=== PATIENT | male | born 1955 | race Caucasian/White ===

== ENCOUNTER 2020-11-07 10:04 | Inpatient (IN) | payer MEDICARE, MEDICAID ==
[2020-11-07] MEDS ORDERED: Ketorolac Tromethamine 30 MG/ML VIAL ONE (10:29)
[2020-11-07] MEDS ORDERED: Midazolam HCl 2 mg/2 ml Vial ONE (10:29)
[2020-11-07] MEDS ORDERED: Propofol 1,000 MG/100 ML VIAL IV ONE (10:56)
[2020-11-07] MEDS ORDERED: Acetaminophen 650 MG Suppository ONE (10:58)
[2020-11-07] MEDS ORDERED: cefTRIAXone\\ROCEPHIN 1 GM VIAL ONE (11:01)
[2020-11-07] MEDS ORDERED: Vancomycin 1 GM/200 ML BAG ONE (11:01)
[2020-11-07] MEDS ORDERED: Sodium Chloride 0.9% 100 ML ONE (11:02)
[2020-11-07] MEDS ORDERED: Enoxaparin Sodium 80 MG/0.8 ML SYRINGE ONE (11:09)
[2020-11-07 11:14] LABS: Actual Bicarbonate (HCO3a) 18.3 mEq/L (22-28); Analyzer IN Cardio ER; Base Excess (BEa) -7.6 mEq/L (-2.0 to +3.0); CO2 Tension 38.7 mmHg (35.0-45.0); Calcium, Ionized (arterial) 1.14 mmol/L (1.12-1.30); Carboxyhemoglobin (COHb) 0.3 gm% (0.0-3.0); Hemoglobin (Hb) 14.4 g/dL (14.0-18.0); O2 Tension (PaO2), arterial 59.2 mmHg (> 80.0); Potassium - ABG Lab 4.07 mmol/L (3.70-5.30); pH, Arterial 7.29 (7.35-7.45)
[2020-11-07 11:15] LABS: ALV-art Gradient 605.425 mmHg (0-20); Puncture Site RRA
[2020-11-07 11:21] LABS: INR-International Normal Ratio 1.1; PTT 24.6 sec (22.9-36.1); Prothrombin Time 14.4 sec (12.0-14.7)
[2020-11-07 11:34] LABS: Band 11 % (5-11); Hemoglobin 14.5 g/dL (14.0-18.0); Lymphocytes 6 % (21-51); MDiff Complete? YES; Mean Corpuscular HGB CONC 32.9 g/dL (32.0-36.0); Mean Corpuscular Hemoglobin 32.4 pg (27.0-31.0); Mean Corpuscular Volume 98.5 fL (78.0-98.0); Mean Platelet Volume 7.4 fL (7.4-10.4); Monocytes 1 % (0-10); Neutrophil 82 % (42-75); Nucleated RBC 2 % (0); Platelet Count 231 thou/uL (130-400); RBC Distribution Width 12.7 % (11.5-14.5); Red Blood Cell (RBC) Count 4.48 mill/uL (4.70-6.10); White Blood Cell (WBC) Count 24.5 thou/uL (4.8-10.8)
[2020-11-07 11:35] LABS: Chloride 112 mmol/L (98-107); Potassium 4.1 mmol/L (3.5-5.1); Sodium 146 mmol/L (136-145)
[2020-11-07 11:36] LABS: Calcium 7.8 mg/dL (7.8-10.44)
[2020-11-07 11:37] LABS: Globulin 2.6 g/dL (2.4-3.5); Protein, Total 5.6 g/dL (5.8-8.1)
[2020-11-07 11:38] LABS: Anion Gap 19 mmol/L (10-20); Carbon Dioxide 19 mmol/L (23-31)
[2020-11-07 11:39] LABS: Glucose 181 mg/dL (80-115)
[2020-11-07 11:40] LABS: Alkaline Phosphatase 74 U/L (40-110); Calc. Creatinine Clearance 0 mL/min (70-130)
[2020-11-07 11:41] LABS: BUN (Urea Nitrogen) 34 mg/dL (8.4-25.7)
[2020-11-07 11:42] LABS: ALT (SGPT) 53 U/L (8-55); AST (SGOT) 55 U/L (5-34)
[2020-11-07 11:51] LABS: CKMB 1.8 ng/mL (0-6.6)
[2020-11-07] MEDS ORDERED: Lorazepam 2 MG/ML VIAL ONE (12:02)
[2020-11-07] MEDS ORDERED: Fentanyl 100 MCG/2 ML VIAL ONE (12:02)
[2020-11-07 12:10] LABS: Bacteria/HPF 2+ HPF (None Seen); Bilirubin Negative (Negative); Blood, Urine 3+ (Negative); Clarity Clear (Clear); Glucose, Urine (Dipstick) Normal (Negative); Ketone, Urine Negative (Negative); Leukocyte Negative Leu/uL (Negative); Nitrite Negative (Negative); Protein, Urine (Dipstick) 70 mg/dL (Neg-Trace); RBC/HPF 21-50 HPF (0-3); Specific Gravity, Urine 1.018 (1.002-1.036); Squamous Epithelial 0-3 HPF (0-3); Urobilinogen Normal mg/dL (Less than 2); pH, Urine 5.5 (5.0-9.0)
[2020-11-07] MEDS ORDERED: Cefepime 2 GM VIAL ONE (12:13)
[2020-11-07] MEDS ORDERED: Ondansetron PF 4 MG/2 ML Vial IVP PRN (12:22)
[2020-11-07] MEDS ORDERED: Fentanyl CADD 100 ML IV SCH (12:30)
[2020-11-07] MEDS ORDERED: Ventilator Sedation Protocol 1 EACH FS SCH (12:30)
[2020-11-07] MEDS ORDERED: Morphine 2 MG/ML VIAL SLOW IVP PRN (13:15)
[2020-11-07] MEDS ORDERED: DISCONTINUE PREVIOUS NARCOTIC PAIN MEDICATIONS AND BENZODIAZEPINES FS SCH (13:15)
[2020-11-07] MEDS ORDERED: Propofol BOLUS 1,000 MG/100 ML VIAL IV PRN (13:15)
[2020-11-07] MEDS ORDERED: Fentanyl BOLUS 250 ML IVPB PRN (13:15)
[2020-11-07] MEDS ORDERED: Vecuronium 10 MG VIAL ONE (14:22)
[2020-11-07 14:26] LABS: CKMB 5.2 ng/mL (0-6.6)
[2020-11-07] MEDS ORDERED: Heparin 5,000 UNITS/ML VIAL SC SCH (15:00)
[2020-11-07] MEDS ORDERED: Sodium Chloride 0.9% 1,000 ML IV SCH (15:15)
[2020-11-07] MEDS: Sodium Chloride 0.45% 1,000 ML IV SCH (15:49)
[2020-11-07] MEDS: Vecuronium 10 MG VIAL IVP PRN (15:57)
[2020-11-07] MEDS: methylPREDNISolone Sod Succ/PF 80 MG in Sodium Chloride 0.9% 250 ML 250 ML IVPB SCH (17:41)
[2020-11-07 19:47] LABS: CKMB 11.9 ng/mL (0-6.6)
[2020-11-07] MEDS: Enoxaparin Sodium 60 MG/0.6 ML SYRINGE SC SCH (20:45)
[2020-11-07] MEDS: Pantoprazole 40 MG VIAL IVP SCH (20:46)
[2020-11-07] MEDS ORDERED: Famotidine/PF 20 mg/2ml Vial SLOW IVP SCH (21:00)
[2020-11-07] MEDS: Vancomycin 1 GM in Premix Bag 1 BAG IVPB SCH (22:53)
[2020-11-07] MEDS: Cefepime 2 GM in Sodium Chloride 0.9% 100 ML IVPB SCH (23:57)
[2020-11-08] MEDS: Vecuronium 10 MG VIAL IVP PRN ×9 (01:17→23:12)
[2020-11-08 04:40] LABS: Anion Gap 14 mmol/L (10-20); BUN (Urea Nitrogen) 43 mg/dL (8.4-25.7); Calc. Creatinine Clearance 42 mL/min (70-130); Calcium 7.6 mg/dL (7.8-10.44); Carbon Dioxide 19 mmol/L (23-31); Chloride 114 mmol/L (98-107); Glucose 137 mg/dL (80-115); Sodium 142 mmol/L (136-145)
[2020-11-08 04:48] LABS: Mean Corpuscular HGB CONC 30.9 g/dL (32.0-36.0); Mean Corpuscular Hemoglobin 30.5 pg (27.0-31.0); Mean Corpuscular Volume 98.4 fL (78.0-98.0); Mean Platelet Volume 7.4 fL (7.4-10.4); Platelet Count 200 thou/uL (130-400); RBC Distribution Width 12.5 % (11.5-14.5); Red Blood Cell (RBC) Count 3.93 mill/uL (4.70-6.10)
[2020-11-08 05:09] LABS: Band 1 % (5-11); Lymphocytes 5 % (21-51); MDiff Complete? YES; Monocytes 2 % (0-10); Neutrophil 92 % (42-75)
[2020-11-08] MEDS: Sodium Chloride 0.45% 1,000 ML IV SCH ×2 (05:58→17:21)
[2020-11-08] MEDS: Propofol 1,000 MG/100 ML VIAL IV PRN ×2 (07:42→20:01)
[2020-11-08 08:32] LABS: Actual Bicarbonate (HCO3a) 20.1 mEq/L (22-28); Base Excess (BEa) -5.5 mEq/L (-2.0 to +3.0); CO2 Tension 39.4 mmHg (35.0-45.0); Calcium, Ionized (arterial) 1.14 mmol/L (1.12-1.30); Carboxyhemoglobin (COHb) 0.3 gm% (0.0-3.0); Hemoglobin (Hb) 12.6 g/dL (14.0-18.0); Potassium - ABG Lab 4.64 mmol/L (3.70-5.30); pH, Arterial 7.33 (7.35-7.45)
[2020-11-08 08:34] LABS: O2 Tension (PaO2), arterial 52.6 mmHg (> 80.0)
[2020-11-08 08:35] LABS: Puncture Site LRA
[2020-11-08] MEDS ORDERED: Sterile Water 10 ML ONE (08:52)
[2020-11-08] MEDS ORDERED: Dexamethasone 10 MG in Sodium Chloride 0.9% 50 ML IVPB SCH (09:00)
[2020-11-08] MEDS ORDERED: Dexamethasone 4 mg/ml Vial SLOW IVP SCH (09:00)
[2020-11-08] MEDS: Pantoprazole 40 MG VIAL IVP SCH ×2 (10:00→20:01)
[2020-11-08] MEDS: Enoxaparin Sodium 60 MG/0.6 ML SYRINGE SC SCH ×2 (10:00→20:01)
[2020-11-08] MEDS ORDERED: Fentanyl CADD 100 ML ONE (11:14)
[2020-11-08] MEDS: Vancomycin 1 GM in Premix Bag 1 BAG IVPB SCH ×2 (11:17→23:08)
[2020-11-08] MEDS: Cefepime 2 GM in Sodium Chloride 0.9% 100 ML IVPB SCH (11:17)
[2020-11-08] MEDS: Fentanyl CADD 100 ML IV SCH (11:17)
[2020-11-08] MEDS: Cefepime 1 GM in Sodium Chloride 0.9% 100 ML IVPB SCH ×2 (11:39→23:07)
[2020-11-08] MEDS: Lorazepam 2 MG/ML VIAL SLOW IVP PRN (11:47)
[2020-11-08] MEDS: methylPREDNISolone Sod Succ/PF 80 MG in Sodium Chloride 0.9% 250 ML 250 ML IVPB SCH (20:01)
[2020-11-09] MEDS: Vecuronium 10 MG VIAL IVP PRN ×5 (02:30→20:01)
[2020-11-09 04:47] LABS: Band 7 % (5-11); Hemoglobin 11.3 g/dL (14.0-18.0); Lymphocytes 2 % (21-51); MDiff Complete? YES; Mean Corpuscular HGB CONC 31.5 g/dL (32.0-36.0); Mean Corpuscular Hemoglobin 31.1 pg (27.0-31.0); Mean Corpuscular Volume 98.8 fL (78.0-98.0); Neutrophil 91 % (42-75); Platelet Count 226 thou/uL (130-400); RBC Distribution Width 12.3 % (11.5-14.5); Red Blood Cell (RBC) Count 3.64 mill/uL (4.70-6.10); White Blood Cell (WBC) Count 16.3 thou/uL (4.8-10.8)
[2020-11-09] MEDS ORDERED: Fentanyl CADD 100 ML ONE (05:21)
[2020-11-09] MEDS: Lorazepam 2 MG/ML VIAL SLOW IVP PRN ×5 (05:22→20:00)
[2020-11-09] MEDS: Fentanyl CADD 100 ML IV SCH (05:22)
[2020-11-09 06:03] LABS: Anion Gap 14 mmol/L (10-20); BUN (Urea Nitrogen) 45 mg/dL (8.4-25.7); Calc. Creatinine Clearance 46 mL/min (70-130); Calcium 7.6 mg/dL (7.8-10.44); Carbon Dioxide 21 mmol/L (23-31); Chloride 112 mmol/L (98-107); Glucose 114 mg/dL (80-115); Potassium 5.2 mmol/L (3.5-5.1); Sodium 142 mmol/L (136-145)
[2020-11-09] MEDS: Sodium Chloride 0.45% 1,000 ML IV SCH ×2 (06:24→20:01)
[2020-11-09] MEDS: Enoxaparin Sodium 60 MG/0.6 ML SYRINGE SC SCH ×2 (08:38→20:00)
[2020-11-09] MEDS: Propofol 1,000 MG/100 ML VIAL IV PRN (08:38)
[2020-11-09] MEDS: Pantoprazole 40 MG VIAL IVP SCH ×2 (08:39→20:00)
[2020-11-09] MEDS: Cefepime 1 GM in Sodium Chloride 0.9% 100 ML IVPB SCH ×2 (10:33→23:38)
[2020-11-09 11:07] LABS: Vancomycin, Trough 23.2 ug/mL
[2020-11-09] MEDS: Vancomycin 1 GM in Premix Bag 1 BAG IVPB SCH (11:35)
[2020-11-09] MEDS: methylPREDNISolone Sod Succ/PF 80 MG in Sodium Chloride 0.9% 250 ML 250 ML IVPB SCH (16:28)
[2020-11-09] MEDS: Vancomycin HCl 750 MG in Sodium Chloride 0.9% 250 ML 250 ML IVPB SCH (23:37)
[2020-11-10] MEDS: Lorazepam 2 MG/ML VIAL SLOW IVP PRN ×6 (00:36→23:25)
[2020-11-10] MEDS: Vecuronium 10 MG VIAL IVP PRN ×5 (00:36→23:25)
[2020-11-10 04:32] LABS: Anion Gap 8 mmol/L (10-20); BUN (Urea Nitrogen) 52 mg/dL (8.4-25.7); Calc. Creatinine Clearance 57 mL/min (70-130); Calcium 7.5 mg/dL (7.8-10.44); Carbon Dioxide 22 mmol/L (23-31); Chloride 113 mmol/L (98-107); Glucose 156 mg/dL (80-115); Sodium 138 mmol/L (136-145)
[2020-11-10 04:58] LABS: CKMB 2.2 ng/mL (0-6.6)
[2020-11-10 05:04] LABS: Hemoglobin 11.6 g/dL (14.0-18.0); Mean Corpuscular HGB CONC 34.2 g/dL (32.0-36.0); Mean Corpuscular Hemoglobin 32.9 pg (27.0-31.0); Mean Corpuscular Volume 96.1 fL (78.0-98.0); Mean Platelet Volume 7.1 fL (7.4-10.4); Platelet Count 211 thou/uL (130-400); RBC Distribution Width 12.1 % (11.5-14.5); Red Blood Cell (RBC) Count 3.52 mill/uL (4.70-6.10); White Blood Cell (WBC) Count 14.4 thou/uL (4.8-10.8)
[2020-11-10 05:27] LABS: Band 2 % (5-11); Lymphocytes 3 % (21-51); MDiff Complete? YES; Monocytes 1 % (0-10); Neutrophil 94 % (42-75)
[2020-11-10] MEDS: Propofol 1,000 MG/100 ML VIAL IV PRN ×3 (05:54→20:12)
[2020-11-10] MEDS: Enoxaparin Sodium 60 MG/0.6 ML SYRINGE SC SCH ×2 (08:14→20:02)
[2020-11-10] MEDS: Pantoprazole 40 MG VIAL IVP SCH ×2 (08:14→20:02)
[2020-11-10] MEDS: Vancomycin HCl 750 MG in Sodium Chloride 0.9% 250 ML 250 ML IVPB SCH ×2 (10:42→23:20)
[2020-11-10] MEDS: Cefepime 1 GM in Sodium Chloride 0.9% 100 ML IVPB SCH ×2 (10:42→23:20)
[2020-11-10] MEDS: Sodium Chloride 0.45% 1,000 ML IV SCH ×2 (10:44→23:21)
[2020-11-10] MEDS ORDERED: Fentanyl CADD 100 ML ONE (13:04)
[2020-11-10] MEDS: Fentanyl CADD 100 ML IV SCH (13:08)
[2020-11-10] MEDS: methylPREDNISolone Sod Succ/PF 80 MG in Sodium Chloride 0.9% 250 ML 250 ML IVPB SCH (17:55)
[2020-11-10] MEDS: Metoprolol Tartrate 25 MG TAB PO SCH (20:02)
[2020-11-11] MEDS: Lorazepam 2 MG/ML VIAL SLOW IVP PRN ×5 (03:02→17:31)
[2020-11-11] MEDS: Vecuronium 10 MG VIAL IVP PRN ×3 (03:03→09:47)
[2020-11-11] MEDS: Propofol 1,000 MG/100 ML VIAL IV PRN ×3 (03:05→17:31)
[2020-11-11 04:01] LABS: Hemoglobin 11.5 g/dL (14.0-18.0); Mean Corpuscular HGB CONC 32.7 g/dL (32.0-36.0); Mean Corpuscular Hemoglobin 31.9 pg (27.0-31.0); Mean Corpuscular Volume 97.7 fL (78.0-98.0); Mean Platelet Volume 6.9 fL (7.4-10.4); Platelet Count 200 thou/uL (130-400); RBC Distribution Width 12.4 % (11.5-14.5); Red Blood Cell (RBC) Count 3.61 mill/uL (4.70-6.10); White Blood Cell (WBC) Count 17.7 thou/uL (4.8-10.8)
[2020-11-11 04:10] LABS: Anion Gap 9 mmol/L (10-20); BUN (Urea Nitrogen) 52 mg/dL (8.4-25.7); Calc. Creatinine Clearance 0 mL/min (70-130); Calcium 7.4 mg/dL (7.8-10.44); Carbon Dioxide 21 mmol/L (23-31); Chloride 112 mmol/L (98-107); Glucose 153 mg/dL (80-115); Potassium 5.3 mmol/L (3.5-5.1); Sodium 137 mmol/L (136-145)
[2020-11-11 04:30] LABS: Band 1 % (5-11); Lymphocytes 2 % (21-51); MDiff Complete? YES; Monocytes 2 % (0-10); Myelocyte 1 % (0-0); Neutrophil 94 % (42-75)
[2020-11-11] MEDS: Enoxaparin Sodium 60 MG/0.6 ML SYRINGE SC SCH ×2 (08:20→21:27)
[2020-11-11] MEDS: Pantoprazole 40 MG VIAL IVP SCH ×2 (08:21→21:27)
[2020-11-11] MEDS: Metoprolol Tartrate 25 MG TAB PO SCH ×2 (08:21→21:27)
[2020-11-11] MEDS ORDERED: Fentanyl CADD 100 ML ONE (09:41)
[2020-11-11] MEDS: Fentanyl CADD 100 ML IV SCH (09:44)
[2020-11-11] MEDS: Vancomycin HCl 750 MG in Sodium Chloride 0.9% 250 ML 250 ML IVPB SCH ×2 (09:47→23:41)
[2020-11-11] MEDS: Cefepime 1 GM in Sodium Chloride 0.9% 100 ML IVPB SCH ×2 (11:04→23:42)
[2020-11-11 12:25] LABS: Vancomycin, Trough 44.5 ug/mL
[2020-11-11 14:32] LABS: Troponin I 0.195 ng/mL (< 0.028)
[2020-11-11] MEDS: methylPREDNISolone Sod Succ/PF 80 MG in Sodium Chloride 0.9% 250 ML 250 ML IVPB SCH (17:31)
[2020-11-12] MEDS: Propofol 1,000 MG/100 ML VIAL IV PRN ×5 (01:32→23:59)
[2020-11-12] MEDS: Lorazepam 2 MG/ML VIAL SLOW IVP PRN ×3 (01:33→20:48)
[2020-11-12 04:19] LABS: Band 3 % (5-11); Hemoglobin 11.9 g/dL (14.0-18.0); Hypochromia SLIGHT = 6-15 cells (100X) (0-5/hpf); Lymphocytes 8 % (21-51); MDiff Complete? YES; Mean Corpuscular HGB CONC 33.9 g/dL (32.0-36.0); Mean Corpuscular Hemoglobin 32.4 pg (27.0-31.0); Mean Corpuscular Volume 95.6 fL (78.0-98.0); Monocytes 3 % (0-10); Neutrophil 86 % (42-75); Platelet Count 203 thou/uL (130-400); Platelet Morphology Comment Appears Adequate; RBC Distribution Width 12.2 % (11.5-14.5); Red Blood Cell (RBC) Count 3.68 mill/uL (4.70-6.10); White Blood Cell (WBC) Count 20.4 thou/uL (4.8-10.8)
[2020-11-12 04:24] LABS: Anion Gap 11 mmol/L (10-20); BUN (Urea Nitrogen) 61 mg/dL (8.4-25.7); Calc. Creatinine Clearance 65 mL/min (70-130); Calcium 7.6 mg/dL (7.8-10.44); Carbon Dioxide 20 mmol/L (23-31); Chloride 112 mmol/L (98-107); Glucose 130 mg/dL (80-115); Sodium 138 mmol/L (136-145)
[2020-11-12] MEDS ORDERED: Fentanyl CADD 100 ML ONE ×2 (05:57→20:48)
[2020-11-12] MEDS: Fentanyl CADD 100 ML IV SCH ×2 (05:59→20:52)
[2020-11-12 08:07] LABS: Actual Bicarbonate (HCO3a) 20.6 mEq/L (22-28); Base Excess (BEa) -4.1 mEq/L (-2.0 to +3.0); CO2 Tension 36.2 mmHg (35.0-45.0); Calcium, Ionized (arterial) 1.19 mmol/L (1.12-1.30); Carboxyhemoglobin (COHb) 0.3 gm% (0.0-3.0); Hemoglobin (Hb) 11.7 g/dL (14.0-18.0); Potassium - ABG Lab 4.56 mmol/L (3.70-5.30); pH, Arterial 7.37 (7.35-7.45)
[2020-11-12 08:11] LABS: O2 Tension (PaO2), arterial 59.9 mmHg (> 80.0)
[2020-11-12 08:12] LABS: Puncture Site RRA
[2020-11-12] MEDS: Micafungin 100 MG in Sodium Chloride 0.9% 100 ML IVPB SCH (08:57)
[2020-11-12] MEDS: Pantoprazole 40 MG VIAL IVP SCH ×2 (08:57→21:49)
[2020-11-12] MEDS: Ascorbic Acid 500 mg Chewable Tablet PER TUBE SCH (08:58)
[2020-11-12] MEDS: Zinc Sulfate 220 MG CAP PER TUBE SCH (08:58)
[2020-11-12] MEDS: Metoprolol Tartrate 25 MG TAB PO SCH ×2 (08:58→21:48)
[2020-11-12] MEDS: Enoxaparin Sodium 60 MG/0.6 ML SYRINGE SC SCH ×2 (08:58→21:49)
[2020-11-12] MEDS ORDERED: Vancomycin HCl 750 MG in Sodium Chloride 0.9% 250 ML 250 ML IVPB SCH (10:45)
[2020-11-12 11:21] LABS: Vancomycin, Trough 24.9 ug/mL
[2020-11-12] MEDS: Cefepime 1 GM in Sodium Chloride 0.9% 100 ML IVPB SCH ×2 (12:20→23:59)
[2020-11-12] MEDS: methylPREDNISolone Sod Succ/PF 80 MG in Sodium Chloride 0.9% 250 ML 250 ML IVPB SCH (18:10)
[2020-11-12] MEDS: hydrALAZINE 20 MG/ML VIAL SLOW IVP PRN (18:13)
[2020-11-12] MEDS ORDERED: Acetaminophen 325 MG TAB PO PRN (21:25)
[2020-11-12] MEDS ORDERED: Acetaminophen 650 MG Suppository PR PRN (21:26)
[2020-11-13 04:25] LABS: Anion Gap 10 mmol/L (10-20); BUN (Urea Nitrogen) 65 mg/dL (8.4-25.7); Calc. Creatinine Clearance 60 mL/min (70-130); Calcium 7.9 mg/dL (7.8-10.44); Carbon Dioxide 23 mmol/L (23-31); Chloride 111 mmol/L (98-107); Glucose 148 mg/dL (80-115); Potassium 6.1 mmol/L (3.5-5.1); Sodium 138 mmol/L (136-145)
[2020-11-13 04:37] LABS: Hemoglobin 12.2 g/dL (14.0-18.0); Mean Corpuscular HGB CONC 34.1 g/dL (32.0-36.0); Mean Corpuscular Hemoglobin 33.2 pg (27.0-31.0); Mean Corpuscular Volume 97.3 fL (78.0-98.0); Mean Platelet Volume 8.3 fL (7.4-10.4); Platelet Count 160 thou/uL (130-400); RBC Distribution Width 12.9 % (11.5-14.5); Red Blood Cell (RBC) Count 3.66 mill/uL (4.70-6.10); White Blood Cell (WBC) Count 25.8 thou/uL (4.8-10.8)
[2020-11-13] MEDS: Propofol 1,000 MG/100 ML VIAL IV PRN ×3 (04:46→17:12)
[2020-11-13 05:04] LABS: Band 2 % (5-11); Lymphocytes 3 % (21-51); MDiff Complete? YES; Monocytes 2 % (0-10); Myelocyte 1 % (0-0); Neutrophil 92 % (42-75); Platelet Morphology Comment Appears Adequate; RBC Morphology Normal
[2020-11-13] MEDS: Zinc Sulfate 220 MG CAP PER TUBE SCH (08:23)
[2020-11-13] MEDS: Metoprolol Tartrate 25 MG TAB PO SCH ×2 (08:23→21:03)
[2020-11-13] MEDS: Ascorbic Acid 500 mg Chewable Tablet PER TUBE SCH (08:23)
[2020-11-13] MEDS: Enoxaparin Sodium 60 MG/0.6 ML SYRINGE SC SCH (08:23)
[2020-11-13] MEDS: Pantoprazole 40 MG VIAL IVP SCH ×2 (08:23→21:03)
[2020-11-13] MEDS: Micafungin 100 MG in Sodium Chloride 0.9% 100 ML IVPB SCH (08:29)
[2020-11-13 08:55] LABS: Actual Bicarbonate (HCO3a) 21.6 mEq/L (22-28); Base Excess (BEa) -6.9 mEq/L (-2.0 to +3.0); CO2 Tension 56.8 mmHg (35.0-45.0); Calcium, Ionized (arterial) 1.22 mmol/L (1.12-1.30); Carboxyhemoglobin (COHb) 0.3 gm% (0.0-3.0); Hemoglobin (Hb) 12.4 g/dL (14.0-18.0); O2 Tension (PaO2), arterial 79.7 mmHg (> 80.0); Potassium - ABG Lab 5.48 mmol/L (3.70-5.30)
[2020-11-13 08:58] LABS: Puncture Site LRA
[2020-11-13] MEDS: Fentanyl CADD 100 ML IV SCH (09:57)
[2020-11-13] MEDS: Vancomycin 1 GM in Premix Bag 1 BAG IVPB SCH (10:23)
[2020-11-13] MEDS: Cefepime 1 GM in Sodium Chloride 0.9% 100 ML IVPB SCH (12:33)
[2020-11-13] MEDS: methylPREDNISolone Sod Succ/PF 80 MG in Sodium Chloride 0.9% 250 ML 250 ML IVPB SCH (18:12)
[2020-11-13] MEDS ORDERED: Dextrose 50% Abboject 50 ML SYRINGE SLOW IVP SCH (18:39)
[2020-11-13] MEDS ORDERED: Insulin Regular 300 UNITS/3 ML VIAL IVP SCH (18:45)
[2020-11-13 21:13] LABS: Potassium 4.6 mmol/L (3.5-5.1)
[2020-11-14] MEDS: Cefepime 1 GM in Sodium Chloride 0.9% 100 ML IVPB SCH ×3 (00:32→23:25)
[2020-11-14 04:28] LABS: Lymphocytes 3 % (21-51); MDiff Complete? YES; Mean Corpuscular HGB CONC 34.2 g/dL (32.0-36.0); Mean Corpuscular Hemoglobin 33.3 pg (27.0-31.0); Mean Corpuscular Volume 97.4 fL (78.0-98.0); Metamyelocyte 1 % (0-0); Monocytes 1 % (0-10); Myelocyte 1 % (0-0); Neutrophil 94 % (42-75); Nucleated RBC 2 % (0); Platelet Count 143 thou/uL (130-400); Platelet Morphology Comment Appears Adequate; RBC Distribution Width 12.8 % (11.5-14.5); White Blood Cell (WBC) Count 14.2 thou/uL (4.8-10.8)
[2020-11-14] MEDS: Fentanyl CADD 100 ML IV SCH (05:43)
[2020-11-14] MEDS ORDERED: Fentanyl CADD 100 ML ONE (06:07)
[2020-11-14 06:33] LABS: Chloride 116 mmol/L (98-107); Potassium 5.7 mmol/L (3.5-5.1); Sodium 142 mmol/L (136-145)
[2020-11-14 06:34] LABS: Calcium 8.2 mg/dL (7.8-10.44); Glucose 147 mg/dL (80-115)
[2020-11-14 06:36] LABS: Anion Gap 13 mmol/L (10-20); Carbon Dioxide 19 mmol/L (23-31)
[2020-11-14] MEDS: Lorazepam 2 MG/ML VIAL SLOW IVP PRN (06:37)
[2020-11-14 06:38] LABS: BUN (Urea Nitrogen) 76 mg/dL (8.4-25.7); Calc. Creatinine Clearance 65 mL/min (70-130)
[2020-11-14 08:31] LABS: Actual Bicarbonate (HCO3a) 22.8 mEq/L (22-28); Base Excess (BEa) -2.9 mEq/L (-2.0 to +3.0); CO2 Tension 42.9 mmHg (35.0-45.0); Calcium, Ionized (arterial) 1.22 mmol/L (1.12-1.30); Carboxyhemoglobin (COHb) 0.1 gm% (0.0-3.0); Hemoglobin (Hb) 11.8 g/dL (14.0-18.0); O2 Tension (PaO2), arterial 75.3 mmHg (> 80.0); Potassium - ABG Lab 4.61 mmol/L (3.70-5.30); pH, Arterial 7.34 (7.35-7.45)
[2020-11-14 08:37] LABS: ALV-art Gradient 441.475 mmHg (0-20); Puncture Site RRA
[2020-11-14] MEDS: Pantoprazole 40 MG VIAL IVP SCH ×2 (08:41→20:12)
[2020-11-14] MEDS: Ascorbic Acid 500 mg Chewable Tablet PER TUBE SCH (08:41)
[2020-11-14] MEDS: Micafungin 100 MG in Sodium Chloride 0.9% 100 ML IVPB SCH (08:41)
[2020-11-14] MEDS: Enoxaparin Sodium 60 MG/0.6 ML SYRINGE SC SCH (08:41)
[2020-11-14] MEDS: Zinc Sulfate 220 MG CAP PER TUBE SCH (08:42)
[2020-11-14] MEDS: Metoprolol Tartrate 25 MG TAB PO SCH ×2 (08:42→20:12)
[2020-11-14] MEDS: Vancomycin 1 GM in Premix Bag 1 BAG IVPB SCH (10:32)
[2020-11-14] MEDS: Propofol 1,000 MG/100 ML VIAL IV PRN ×2 (10:45→18:26)
[2020-11-14] MEDS: methylPREDNISolone Sod Succ/PF 80 MG in Sodium Chloride 0.9% 250 ML 250 ML IVPB SCH (17:43)
[2020-11-14] MEDS ORDERED: Dextrose 50% Abboject 50 ML SYRINGE SLOW IVP SCH (18:42)
[2020-11-14] MEDS ORDERED: Insulin Regular 300 UNITS/3 ML VIAL IVP SCH (18:45)
[2020-11-14 21:41] LABS: Potassium 4.4 mmol/L (3.5-5.1)
[2020-11-15] MEDS ORDERED: Fentanyl CADD 100 ML ONE (01:22)
[2020-11-15] MEDS: Fentanyl CADD 100 ML IV SCH ×2 (01:24→20:26)
[2020-11-15] MEDS: Propofol 1,000 MG/100 ML VIAL IV PRN ×3 (01:47→13:50)
[2020-11-15 04:05] LABS: Anion Gap 11 mmol/L (10-20); BUN (Urea Nitrogen) 76 mg/dL (8.4-25.7); Calc. Creatinine Clearance 74 mL/min (70-130); Calcium 7.7 mg/dL (7.8-10.44); Carbon Dioxide 25 mmol/L (23-31); Chloride 117 mmol/L (98-107); Glucose 145 mg/dL (80-115); Potassium 5.1 mmol/L (3.5-5.1); Sodium 148 mmol/L (136-145)
[2020-11-15 04:25] LABS: Band 2 % (5-11); Hemoglobin 10.8 g/dL (14.0-18.0); Lymphocytes 4 % (21-51); MDiff Complete? YES; Mean Corpuscular HGB CONC 34.4 g/dL (32.0-36.0); Mean Corpuscular Hemoglobin 33.3 pg (27.0-31.0); Mean Corpuscular Volume 96.8 fL (78.0-98.0); Mean Platelet Volume 8.5 fL (7.4-10.4); Metamyelocyte 1 % (0-0); Monocytes 4 % (0-10); Myelocyte 1 % (0-0); Neutrophil 87 % (42-75); Platelet Count 146 thou/uL (130-400); Platelet Morphology Comment Appears Adequate; RBC Distribution Width 12.8 % (11.5-14.5); RBC Morphology Normal; Reactive Lymphocytes 1 % (0-10); Red Blood Cell (RBC) Count 3.26 mill/uL (4.70-6.10); White Blood Cell (WBC) Count 11.5 thou/uL (4.8-10.8)
[2020-11-15] MEDS: Micafungin 100 MG in Sodium Chloride 0.9% 100 ML IVPB SCH (08:17)
[2020-11-15] MEDS: Zinc Sulfate 220 MG CAP PER TUBE SCH (08:18)
[2020-11-15] MEDS: Pantoprazole 40 MG VIAL IVP SCH ×2 (08:18→21:17)
[2020-11-15] MEDS: Ascorbic Acid 500 mg Chewable Tablet PER TUBE SCH (08:18)
[2020-11-15] MEDS: Enoxaparin Sodium 60 MG/0.6 ML SYRINGE SC SCH (08:18)
[2020-11-15] MEDS: Metoprolol Tartrate 25 MG TAB PO SCH ×2 (08:18→21:17)
[2020-11-15 08:34] LABS: Actual Bicarbonate (HCO3a) 23.1 mEq/L (22-28); Base Excess (BEa) -1.3 mEq/L (-2.0 to +3.0); CO2 Tension 37.7 mmHg (35.0-45.0); Calcium, Ionized (arterial) 1.19 mmol/L (1.12-1.30); Carboxyhemoglobin (COHb) 0.3 gm% (0.0-3.0); Hemoglobin (Hb) 10.7 g/dL (14.0-18.0); O2 Tension (PaO2), arterial 67.5 mmHg (> 80.0); Potassium - ABG Lab 4.62 mmol/L (3.70-5.30); pH, Arterial 7.41 (7.35-7.45)
[2020-11-15 08:42] LABS: Puncture Site LRA
[2020-11-15 08:43] LABS: ALV-art Gradient 527.075 mmHg (0-20)
[2020-11-15] MEDS: methylPREDNISolone Sod Succ/PF 80 MG in Sodium Chloride 0.9% 250 ML 250 ML IVPB SCH (17:55)
[2020-11-16] MEDS: Pantoprazole 40 MG VIAL IVP SCH (07:37)
[2020-11-16] MEDS: Ascorbic Acid 500 mg Chewable Tablet PER TUBE SCH (07:37)
[2020-11-16] MEDS: Enoxaparin Sodium 60 MG/0.6 ML SYRINGE SC SCH (07:37)
[2020-11-16] MEDS: Metoprolol Tartrate 25 MG TAB PO SCH ×2 (07:38→21:13)
[2020-11-16] MEDS: Zinc Sulfate 220 MG CAP PER TUBE SCH (07:38)
[2020-11-16] MEDS: Propofol 1,000 MG/100 ML VIAL IV PRN ×3 (07:39→16:21)
[2020-11-16 07:53] LABS: Anion Gap 11 mmol/L (10-20); BUN (Urea Nitrogen) 79 mg/dL (8.4-25.7); Calc. Creatinine Clearance 75 mL/min (70-130); Carbon Dioxide 23 mmol/L (23-31); Chloride 119 mmol/L (98-107); Glucose 130 mg/dL (80-115); Potassium 5.2 mmol/L (3.5-5.1); Sodium 148 mmol/L (136-145)
[2020-11-16 08:11] LABS: CO2 Tension 34.8 mmHg (35.0-45.0); Calcium, Ionized (arterial) 1.21 mmol/L (1.12-1.30); Hemoglobin (Hb) 11.2 g/dL (14.0-18.0); O2 Tension (PaO2), arterial 66.9 mmHg (> 80.0); Potassium - ABG Lab 4.69 mmol/L (3.70-5.30); pH, Arterial 7.42 (7.35-7.45)
[2020-11-16 08:16] LABS: Puncture Site LRA
[2020-11-16] MEDS: Micafungin 100 MG in Sodium Chloride 0.9% 100 ML IVPB SCH (09:16)
[2020-11-16 09:33] LABS: Hemoglobin 11.6 g/dL (14.0-18.0); Mean Corpuscular HGB CONC 34.1 g/dL (32.0-36.0); Mean Corpuscular Volume 96.7 fL (78.0-98.0); Mean Platelet Volume 7.9 fL (7.4-10.4); Platelet Count 136 thou/uL (130-400); RBC Distribution Width 12.9 % (11.5-14.5); Red Blood Cell (RBC) Count 3.51 mill/uL (4.70-6.10); White Blood Cell (WBC) Count 10.7 thou/uL (4.8-10.8)
[2020-11-16 09:38] LABS: MDiff Complete? YES
[2020-11-16] MEDS: Vecuronium 10 MG VIAL IVP PRN (10:44)
[2020-11-16] MEDS: hydrALAZINE 20 MG/ML VIAL SLOW IVP PRN (10:44)
[2020-11-16 11:09] LABS: Band 1 % (5-11); Lymphocytes 6 % (21-51); Monocytes 3 % (0-10); Myelocyte 1 % (0-0); Neutrophil 89 % (42-75); Nucleated RBC 1 % (0)
[2020-11-16 11:10] LABS: Platelet Morphology Comment Appears Adequate
[2020-11-16] MEDS: Lorazepam 2 MG/ML VIAL SLOW IVP PRN (11:40)
[2020-11-16] MEDS ORDERED: Fentanyl CADD 100 ML ONE (12:31)
[2020-11-16] MEDS: Fentanyl CADD 100 ML IV SCH (13:36)
[2020-11-16] MEDS: methylPREDNISolone Sod Succ/PF 80 MG in Sodium Chloride 0.9% 250 ML 250 ML IVPB SCH (18:30)
[2020-11-17 04:41] LABS: Anion Gap 11 mmol/L (10-20); BUN (Urea Nitrogen) 72 mg/dL (8.4-25.7); Calc. Creatinine Clearance 78 mL/min (70-130); Calcium 8.2 mg/dL (7.8-10.44); Carbon Dioxide 22 mmol/L (23-31); Chloride 115 mmol/L (98-107); Glucose 124 mg/dL (80-115); Potassium 5.2 mmol/L (3.5-5.1); Sodium 143 mmol/L (136-145)
[2020-11-17 05:02] LABS: Band 1 % (5-11); Lymphocytes 6 % (21-51); MDiff Complete? YES; Macrocytosis SLIGHT = 6-15 cells (100X) (0-5/hpf); Mean Corpuscular HGB CONC 33.1 g/dL (32.0-36.0); Mean Corpuscular Hemoglobin 32.7 pg (27.0-31.0); Mean Corpuscular Volume 98.8 fL (78.0-98.0); Mean Platelet Volume 8.2 fL (7.4-10.4); Monocytes 3 % (0-10); Neutrophil 89 % (42-75); Platelet Count 152 thou/uL (130-400); Platelet Morphology Comment Appears Adequate; RBC Distribution Width 13.5 % (11.5-14.5); Reactive Lymphocytes 1 % (0-10); Red Blood Cell (RBC) Count 3.97 mill/uL (4.70-6.10); White Blood Cell (WBC) Count 24.2 thou/uL (4.8-10.8)
[2020-11-17] MEDS: Propofol 1,000 MG/100 ML VIAL IV PRN ×3 (07:52→21:15)
[2020-11-17 08:09] LABS: Actual Bicarbonate (HCO3a) 22.3 mEq/L (22-28); Base Excess (BEa) -2.9 mEq/L (-2.0 to +3.0); CO2 Tension 40.6 mmHg (35.0-45.0); Calcium, Ionized (arterial) 1.25 mmol/L (1.12-1.30); Carboxyhemoglobin (COHb) 0.5 gm% (0.0-3.0); Hemoglobin (Hb) 14.5 g/dL (14.0-18.0); O2 Tension (PaO2), arterial 63.9 mmHg (> 80.0); Potassium - ABG Lab 5.16 mmol/L (3.70-5.30); pH, Arterial 7.36 (7.35-7.45)
[2020-11-17 08:12] LABS: Puncture Site RRA
[2020-11-17] MEDS: Fentanyl CADD 100 ML IV SCH (08:56)
[2020-11-17] MEDS: Enoxaparin Sodium 60 MG/0.6 ML SYRINGE SC SCH (09:01)
[2020-11-17] MEDS: Metoprolol Tartrate 25 MG TAB PO SCH ×2 (09:01→20:01)
[2020-11-17] MEDS: Pantoprazole 40 MG GRANULES PACKET PER TUBE SCH ×2 (09:02→20:01)
[2020-11-17] MEDS: Ascorbic Acid 500 mg Chewable Tablet PER TUBE SCH (09:02)
[2020-11-17] MEDS: Zinc Sulfate 220 MG CAP PER TUBE SCH (09:02)
[2020-11-17] MEDS: Micafungin 100 MG in Sodium Chloride 0.9% 100 ML IVPB SCH (09:07)
[2020-11-17 10:07] LABS: Triglycerides 141 mg/dL (Less than 150)
[2020-11-17] MEDS: Lorazepam 2 MG/ML VIAL SLOW IVP PRN ×2 (10:55→13:43)
[2020-11-17] MEDS: methylPREDNISolone Sod Succ/PF 80 MG in Sodium Chloride 0.9% 250 ML 250 ML IVPB SCH (17:13)
[2020-11-18] MEDS: Propofol 1,000 MG/100 ML VIAL IV PRN ×4 (03:20→17:18)
[2020-11-18] MEDS ORDERED: Fentanyl CADD 100 ML ONE (04:07)
[2020-11-18] MEDS: Fentanyl CADD 100 ML IV SCH (04:17)
[2020-11-18 04:55] LABS: Band 1 % (5-11); Hemoglobin 12.8 g/dL (14.0-18.0); Hypochromia SLIGHT = 6-15 cells (100X) (0-5/hpf); MDiff Complete? YES; Mean Corpuscular HGB CONC 31.9 g/dL (32.0-36.0); Mean Corpuscular Hemoglobin 31.8 pg (27.0-31.0); Mean Corpuscular Volume 99.5 fL (78.0-98.0); Mean Platelet Volume 8.4 fL (7.4-10.4); Monocytes 9 % (0-10); Neutrophil 90 % (42-75); Platelet Count 146 thou/uL (130-400); Platelet Morphology Comment Appears Adequate; RBC Distribution Width 13.5 % (11.5-14.5); Red Blood Cell (RBC) Count 4.02 mill/uL (4.70-6.10); White Blood Cell (WBC) Count 18.3 thou/uL (4.8-10.8)
[2020-11-18 05:00] LABS: Anion Gap 11 mmol/L (10-20); BUN (Urea Nitrogen) 70 mg/dL (8.4-25.7); Calc. Creatinine Clearance 76 mL/min (70-130); Carbon Dioxide 26 mmol/L (23-31); Chloride 114 mmol/L (98-107); Glucose 125 mg/dL (80-115); Potassium 5.1 mmol/L (3.5-5.1); Sodium 146 mmol/L (136-145)
[2020-11-18] MEDS: Enoxaparin Sodium 60 MG/0.6 ML SYRINGE SC SCH (08:30)
[2020-11-18] MEDS: Morphine 4 MG/ML VIAL SLOW IVP PRN (08:30)
[2020-11-18] MEDS: Micafungin 100 MG in Sodium Chloride 0.9% 100 ML IVPB SCH (08:30)
[2020-11-18] MEDS: Pantoprazole 40 MG GRANULES PACKET PER TUBE SCH ×2 (08:31→21:00)
[2020-11-18] MEDS: Lorazepam 2 MG/ML VIAL SLOW IVP PRN ×2 (08:31→12:05)
[2020-11-18] MEDS: Zinc Sulfate 220 MG CAP PER TUBE SCH (08:31)
[2020-11-18] MEDS: Metoprolol Tartrate 25 MG TAB PO SCH ×2 (08:31→22:09)
[2020-11-18] MEDS: Ascorbic Acid 500 mg Chewable Tablet PER TUBE SCH (08:32)
[2020-11-18] MEDS: methylPREDNISolone Sod Succ/PF 80 MG in Sodium Chloride 0.9% 250 ML 250 ML IVPB SCH (18:28)
[2020-11-19 04:30] LABS: Anion Gap 11 mmol/L (10-20); BUN (Urea Nitrogen) 62 mg/dL (8.4-25.7); Calc. Creatinine Clearance 89 mL/min (70-130); Carbon Dioxide 24 mmol/L (23-31); Chloride 115 mmol/L (98-107); Glucose 118 mg/dL (80-115); Potassium 4.7 mmol/L (3.5-5.1); Sodium 145 mmol/L (136-145)
[2020-11-19 04:57] LABS: Hemoglobin 11.8 g/dL (14.0-18.0); Mean Corpuscular HGB CONC 32.8 g/dL (32.0-36.0); Mean Corpuscular Hemoglobin 32.2 pg (27.0-31.0); Mean Corpuscular Volume 98.2 fL (78.0-98.0); Mean Platelet Volume 8.3 fL (7.4-10.4); Platelet Count 132 thou/uL (130-400); RBC Distribution Width 13.7 % (11.5-14.5); Red Blood Cell (RBC) Count 3.67 mill/uL (4.70-6.10); White Blood Cell (WBC) Count 14.9 thou/uL (4.8-10.8)
[2020-11-19 05:15] LABS: Band 4 % (5-11); Eosinophils 1 % (0-10); Lymphocytes 2 % (21-51); MDiff Complete? YES; Neutrophil 93 % (42-75)
[2020-11-19 07:02] LABS: Actual Bicarbonate (HCO3a) 22.7 mEq/L (22-28); Base Excess (BEa) -0.8 mEq/L (-2.0 to +3.0); CO2 Tension 34.1 mmHg (35.0-45.0); Calcium, Ionized (arterial) 1.21 mmol/L (1.12-1.30); Carboxyhemoglobin (COHb) 0.5 gm% (0.0-3.0); Hemoglobin (Hb) 12.9 g/dL (14.0-18.0); O2 Tension (PaO2), arterial 77.5 mmHg (> 80.0); Potassium - ABG Lab 4.55 mmol/L (3.70-5.30); pH, Arterial 7.44 (7.35-7.45)
[2020-11-19 07:03] LABS: Puncture Site LRA
[2020-11-19 07:04] LABS: ALV-art Gradient 307.675 mmHg (0-20)
[2020-11-19] MEDS ORDERED: Fentanyl CADD 100 ML ONE (08:03)
[2020-11-19] MEDS: Metoprolol Tartrate 25 MG TAB PO SCH ×2 (08:33→20:39)
[2020-11-19] MEDS: Ascorbic Acid 500 mg Chewable Tablet PER TUBE SCH (08:33)
[2020-11-19] MEDS: Pantoprazole 40 MG GRANULES PACKET PER TUBE SCH ×2 (08:33→20:39)
[2020-11-19] MEDS: Enoxaparin Sodium 60 MG/0.6 ML SYRINGE SC SCH (08:33)
[2020-11-19] MEDS: Zinc Sulfate 220 MG CAP PER TUBE SCH (08:33)
[2020-11-19] MEDS: Fentanyl CADD 100 ML IV SCH (08:33)
[2020-11-19] MEDS: Lorazepam 2 MG/ML VIAL SLOW IVP PRN (12:55)
[2020-11-19] MEDS: Propofol 1,000 MG/100 ML VIAL IV PRN ×2 (12:55→15:02)
[2020-11-19] MEDS: Vecuronium 10 MG VIAL IVP PRN (12:55)
[2020-11-19] MEDS: Morphine 4 MG/ML VIAL SLOW IVP PRN (12:55)
[2020-11-19] MEDS: methylPREDNISolone Sod Succ/PF 80 MG in Sodium Chloride 0.9% 250 ML 250 ML IVPB SCH (18:50)
[2020-11-20] MEDS: Propofol 1,000 MG/100 ML VIAL IV PRN ×3 (03:51→12:39)
[2020-11-20] MEDS: Fentanyl CADD 100 ML IV SCH (06:03)
[2020-11-20 07:44] LABS: Phosphorus 3.2 mg/dL (2.3-4.7)
[2020-11-20 07:48] LABS: ALT (SGPT) 43 U/L (8-55); AST (SGOT) 15 U/L (5-34); Albumin 2.3 g/dL (3.4-4.8); Alkaline Phosphatase 69 U/L (40-110); Anion Gap 10 mmol/L (10-20); BUN (Urea Nitrogen) 61 mg/dL (8.4-25.7); Bilirubin, Total 0.7 mg/dL (0.2-1.2); Calc. Creatinine Clearance 78 mL/min (70-130); Calcium 7.8 mg/dL (7.8-10.44); Carbon Dioxide 25 mmol/L (23-31); Chloride 114 mmol/L (98-107); Globulin 2.1 g/dL (2.4-3.5); Glucose 124 mg/dL (80-115); Magnesium 2.3 mg/dL (1.6-2.6); Potassium 4.9 mmol/L (3.5-5.1); Protein, Total 4.4 g/dL (5.8-8.1); Sodium 144 mmol/L (136-145)
[2020-11-20 07:52] LABS: CO2 Tension 30.6 mmHg (35.0-45.0); Calcium, Ionized (arterial) 1.17 mmol/L (1.12-1.30); Carboxyhemoglobin (COHb) 0.8 gm% (0.0-3.0); Hemoglobin (Hb) 12.2 g/dL (14.0-18.0); Potassium - ABG Lab 4.65 mmol/L (3.70-5.30); pH, Arterial 7.46 (7.35-7.45)
[2020-11-20] MEDS: Zinc Sulfate 220 MG CAP PER TUBE SCH (08:03)
[2020-11-20] MEDS: Metoprolol Tartrate 25 MG TAB PO SCH ×2 (08:03→20:46)
[2020-11-20] MEDS: Enoxaparin Sodium 60 MG/0.6 ML SYRINGE SC SCH (08:04)
[2020-11-20] MEDS: Pantoprazole 40 MG GRANULES PACKET PER TUBE SCH ×2 (08:04→20:46)
[2020-11-20] MEDS: Ascorbic Acid 500 mg Chewable Tablet PER TUBE SCH (08:04)
[2020-11-20 08:25] LABS: O2 Tension (PaO2), arterial 58.9 mmHg (> 80.0); Puncture Site LRA
[2020-11-20 08:57] LABS: Band 3 % (5-11); Hemoglobin 11.5 g/dL (14.0-18.0); Lymphocytes 6 % (21-51); MDiff Complete? YES; Mean Corpuscular HGB CONC 33.2 g/dL (32.0-36.0); Mean Corpuscular Hemoglobin 32.8 pg (27.0-31.0); Mean Corpuscular Volume 98.7 fL (78.0-98.0); Mean Platelet Volume 8.5 fL (7.4-10.4); Neutrophil 91 % (42-75); Platelet Count 116 thou/uL (130-400); Platelet Morphology Comment Appears Decreased; RBC Distribution Width 13.6 % (11.5-14.5); Red Blood Cell (RBC) Count 3.51 mill/uL (4.70-6.10); White Blood Cell (WBC) Count 13.3 thou/uL (4.8-10.8)
[2020-11-20] MEDS: methylPREDNISolone Sod Succ/PF 80 MG in Sodium Chloride 0.9% 250 ML 250 ML IVPB SCH (18:34)
[2020-11-21] MEDS: Fentanyl CADD 100 ML IV SCH ×2 (01:29→21:46)
[2020-11-21] MEDS: Propofol 1,000 MG/100 ML VIAL IV PRN ×3 (07:08→21:45)
[2020-11-21 07:28] LABS: Actual Bicarbonate (HCO3a) 21.7 mEq/L (22-28); Base Excess (BEa) -1.8 mEq/L (-2.0 to +3.0); CO2 Tension 32.8 mmHg (35.0-45.0); Calcium, Ionized (arterial) 1.16 mmol/L (1.12-1.30); Hemoglobin (Hb) 12.7 g/dL (14.0-18.0); O2 Tension (PaO2), arterial 62.7 mmHg (> 80.0); Potassium - ABG Lab 4.73 mmol/L (3.70-5.30); pH, Arterial 7.44 (7.35-7.45)
[2020-11-21 07:41] LABS: ALT (SGPT) 43 U/L (8-55); AST (SGOT) 19 U/L (5-34); Albumin 2.5 g/dL (3.4-4.8); Alkaline Phosphatase 70 U/L (40-110); Anion Gap 13 mmol/L (10-20); BUN (Urea Nitrogen) 63 mg/dL (8.4-25.7); Bilirubin, Total 0.5 mg/dL (0.2-1.2); Calc. Creatinine Clearance 87 mL/min (70-130); Calcium 7.9 mg/dL (7.8-10.44); Carbon Dioxide 20 mmol/L (23-31); Chloride 114 mmol/L (98-107); Globulin 2.4 g/dL (2.4-3.5); Glucose 114 mg/dL (80-115); Magnesium 2.3 mg/dL (1.6-2.6); Protein, Total 4.9 g/dL (5.8-8.1); Sodium 142 mmol/L (136-145)
[2020-11-21 07:56] LABS: Phosphorus 3.5 mg/dL (2.3-4.7)
[2020-11-21 07:59] LABS: Puncture Site LRA
[2020-11-21 08:17] LABS: Band 6 % (5-11); Hemoglobin 12.7 g/dL (14.0-18.0); Lymphocytes 4 % (21-51); MDiff Complete? YES; Mean Corpuscular HGB CONC 33.4 g/dL (32.0-36.0); Mean Corpuscular Volume 98.9 fL (78.0-98.0); Mean Platelet Volume 8.6 fL (7.4-10.4); Neutrophil 90 % (42-75); Platelet Count 131 thou/uL (130-400); RBC Distribution Width 13.8 % (11.5-14.5); Red Blood Cell (RBC) Count 3.86 mill/uL (4.70-6.10); White Blood Cell (WBC) Count 15.6 thou/uL (4.8-10.8)
[2020-11-21] MEDS: Ascorbic Acid 500 mg Chewable Tablet PER TUBE SCH (08:32)
[2020-11-21] MEDS: Pantoprazole 40 MG GRANULES PACKET PER TUBE SCH ×2 (08:32→21:48)
[2020-11-21] MEDS: Enoxaparin Sodium 60 MG/0.6 ML SYRINGE SC SCH (08:32)
[2020-11-21] MEDS: Zinc Sulfate 220 MG CAP PER TUBE SCH (08:33)
[2020-11-21] MEDS: Metoprolol Tartrate 25 MG TAB PO SCH ×2 (08:33→21:48)
[2020-11-21] MEDS: Dexamethasone 10 MG/ML VIAL SLOW IVP SCH (21:48)
[2020-11-22] MEDS: Propofol 1,000 MG/100 ML VIAL IV PRN ×5 (02:53→22:36)
[2020-11-22 05:14] LABS: ALT (SGPT) 45 U/L (8-55); AST (SGOT) 22 U/L (5-34); Albumin 2.5 g/dL (3.4-4.8); Alkaline Phosphatase 74 U/L (40-110); Anion Gap 15 mmol/L (10-20); BUN (Urea Nitrogen) 78 mg/dL (8.4-25.7); Bilirubin, Total 0.6 mg/dL (0.2-1.2); Calc. Creatinine Clearance 79 mL/min (70-130); Calcium 7.7 mg/dL (7.8-10.44); Carbon Dioxide 21 mmol/L (23-31); Chloride 112 mmol/L (98-107); Globulin 2.4 g/dL (2.4-3.5); Glucose 124 mg/dL (80-115); Magnesium 2.3 mg/dL (1.6-2.6); Potassium 5.5 mmol/L (3.5-5.1); Protein, Total 4.9 g/dL (5.8-8.1); Sodium 142 mmol/L (136-145)
[2020-11-22 06:37] LABS: Hemoglobin 12.7 g/dL (14.0-18.0); Mean Corpuscular HGB CONC 35.4 g/dL (32.0-36.0); Mean Corpuscular Hemoglobin 34.7 pg (27.0-31.0); Mean Corpuscular Volume 98.1 fL (78.0-98.0); Platelet Count 121 thou/uL (130-400); Red Blood Cell (RBC) Count 3.65 mill/uL (4.70-6.10); White Blood Cell (WBC) Count 14.2 thou/uL (4.8-10.8)
[2020-11-22 07:15] LABS: Actual Bicarbonate (HCO3a) 25.8 mEq/L (22-28); Base Excess (BEa) 1.8 mEq/L (-2.0 to +3.0); CO2 Tension 38.1 mmHg (35.0-45.0); Calcium, Ionized (arterial) 1.13 mmol/L (1.12-1.30); Carboxyhemoglobin (COHb) 0.5 gm% (0.0-3.0); Hemoglobin (Hb) 13.9 g/dL (14.0-18.0); pH, Arterial 7.45 (7.35-7.45)
[2020-11-22 07:24] LABS: ALV-art Gradient 182.675 mmHg (0-20); O2 Tension (PaO2), arterial 54.9 mmHg (> 80.0); Puncture Site RRA
[2020-11-22] MEDS: Ascorbic Acid 500 mg Chewable Tablet PER TUBE SCH (09:05)
[2020-11-22] MEDS: Pantoprazole 40 MG GRANULES PACKET PER TUBE SCH ×2 (09:05→22:35)
[2020-11-22] MEDS: Enoxaparin Sodium 60 MG/0.6 ML SYRINGE SC SCH (09:05)
[2020-11-22] MEDS: Dexamethasone 10 MG/ML VIAL SLOW IVP SCH ×2 (09:05→22:35)
[2020-11-22] MEDS: Zinc Sulfate 220 MG CAP PER TUBE SCH (09:06)
[2020-11-22] MEDS: Metoprolol Tartrate 25 MG TAB PO SCH ×2 (09:06→22:42)
[2020-11-22 09:31] LABS: Band 6 % (5-11); Lymphocytes 6 % (21-51); MDiff Complete? YES; Monocytes 1 % (0-10); Neutrophil 87 % (42-75); Platelet Morphology Comment Appears Decreased; Polychromasia SLIGHT = 2-3 cells (100X) (0-2/hpf); RBC Morphology Normal
[2020-11-22] MEDS ORDERED: Fentanyl CADD 0 ML ONE (10:23)
[2020-11-22] MEDS ORDERED: Polyethylene Glycol 3350 17 GM Packet PER TUBE PRN (11:26)
[2020-11-22 14:02] VITALS: BMI 28.5
[2020-11-22] MEDS ORDERED: Fentanyl CADD 100 ML ONE (17:40)
[2020-11-22] MEDS: Fentanyl CADD 100 ML IV SCH (17:43)
[2020-11-22] MEDS ORDERED: Docusate Sodium 10 MG/1 ML Oral Suspension PER TUBE SCH (21:00)
[2020-11-23 04:16] LABS: Phosphorus 3.7 mg/dL (2.3-4.7)
[2020-11-23 04:18] LABS: ALT (SGPT) 73 U/L (8-55); AST (SGOT) 31 U/L (5-34); Albumin 2.7 g/dL (3.4-4.8); Alkaline Phosphatase 89 U/L (40-110); Anion Gap 15 mmol/L (10-20); BUN (Urea Nitrogen) 70 mg/dL (8.4-25.7); Bilirubin, Total 0.6 mg/dL (0.2-1.2); Calc. Creatinine Clearance 83 mL/min (70-130); Calcium 7.9 mg/dL (7.8-10.44); Carbon Dioxide 21 mmol/L (23-31); Chloride 112 mmol/L (98-107); Globulin 2.5 g/dL (2.4-3.5); Glucose 137 mg/dL (80-115); Magnesium 2.3 mg/dL (1.6-2.6); Potassium 4.4 mmol/L (3.5-5.1); Protein, Total 5.2 g/dL (5.8-8.1); Sodium 144 mmol/L (136-145)
[2020-11-23 04:53] LABS: Band 3 % (5-11); Hemoglobin 12.5 g/dL (14.0-18.0); Lymphocytes 1 % (21-51); MDiff Complete? YES; Mean Corpuscular HGB CONC 34.4 g/dL (32.0-36.0); Mean Corpuscular Hemoglobin 33.6 pg (27.0-31.0); Mean Corpuscular Volume 97.7 fL (78.0-98.0); Mean Platelet Volume 8.6 fL (7.4-10.4); Monocytes 1 % (0-10); Neutrophil 95 % (42-75); Platelet Count 158 thou/uL (130-400); RBC Distribution Width 14.4 % (11.5-14.5); Red Blood Cell (RBC) Count 3.73 mill/uL (4.70-6.10); White Blood Cell (WBC) Count 17.4 thou/uL (4.8-10.8)
[2020-11-23] MEDS: Propofol 1,000 MG/100 ML VIAL IV PRN (05:58)
[2020-11-23 07:22] LABS: Actual Bicarbonate (HCO3a) 19.2 mEq/L (22-28); Base Excess (BEa) -3.2 mEq/L (-2.0 to +3.0); CO2 Tension 26.8 mmHg (35.0-45.0); Calcium, Ionized (arterial) 1.15 mmol/L (1.12-1.30); Carboxyhemoglobin (COHb) 0.5 gm% (0.0-3.0); Hemoglobin (Hb) 12.3 g/dL (14.0-18.0); O2 Tension (PaO2), arterial 61.8 mmHg (> 80.0); Potassium - ABG Lab 4.18 mmol/L (3.70-5.30); pH, Arterial 7.47 (7.35-7.45)
[2020-11-23 07:23] LABS: Puncture Site RRA
[2020-11-23] MEDS: Metoprolol Tartrate 25 MG TAB PO SCH ×2 (09:04→21:57)
[2020-11-23] MEDS: Pantoprazole 40 MG GRANULES PACKET PER TUBE SCH ×2 (09:04→21:57)
[2020-11-23] MEDS: Enoxaparin Sodium 60 MG/0.6 ML SYRINGE SC SCH (09:04)
[2020-11-23] MEDS: Zinc Sulfate 220 MG CAP PER TUBE SCH (09:05)
[2020-11-23] MEDS: Dexamethasone 10 MG/ML VIAL SLOW IVP SCH ×2 (09:05→21:57)
[2020-11-23] MEDS: Ascorbic Acid 500 mg Chewable Tablet PER TUBE SCH (09:05)
[2020-11-23] MEDS ORDERED: Metoclopramide HCl 10 MG/2 ML VIAL IVP PRN (10:08)
[2020-11-23] MEDS: Docusate Sodium 100 MG/10 ML UDCUP PER TUBE SCH ×2 (10:17→22:28)
[2020-11-23 14:27] VITALS: BP 124/83
[2020-11-23] MEDS: Fentanyl CADD 100 ML IV SCH (21:58)
[2020-11-23] MEDS: Lorazepam 2 MG/ML VIAL SLOW IVP PRN (22:05)
[2020-11-24 04:00] LABS: Anion Gap 15 mmol/L (10-20); BUN (Urea Nitrogen) 69 mg/dL (8.4-25.7); Calc. Creatinine Clearance 78 mL/min (70-130); Calcium 7.9 mg/dL (7.8-10.44); Carbon Dioxide 22 mmol/L (23-31); Chloride 114 mmol/L (98-107); Glucose 117 mg/dL (80-115); Potassium 4.5 mmol/L (3.5-5.1); Sodium 146 mmol/L (136-145)
[2020-11-24 06:55] LABS: Actual Bicarbonate (HCO3a) 19.9 mEq/L (22-28); Base Excess (BEa) -2.5 mEq/L (-2.0 to +3.0); CO2 Tension 28.3 mmHg (35.0-45.0); Calcium, Ionized (arterial) 1.16 mmol/L (1.12-1.30); Carboxyhemoglobin (COHb) 0.2 gm% (0.0-3.0); pH, Arterial 7.47 (7.35-7.45)
[2020-11-24 06:58] LABS: O2 Tension (PaO2), arterial 50.5 mmHg (> 80.0); Puncture Site RRA
[2020-11-24 06:59] LABS: ALV-art Gradient 341.925 mmHg (0-20)
[2020-11-24] MEDS: Zinc Sulfate 220 MG CAP PER TUBE SCH (09:41)
[2020-11-24] MEDS: Dexamethasone 10 MG/ML VIAL SLOW IVP SCH (09:41)
[2020-11-24] MEDS: Ascorbic Acid 500 mg Chewable Tablet PER TUBE SCH (09:41)
[2020-11-24] MEDS: Enoxaparin Sodium 60 MG/0.6 ML SYRINGE SC SCH (09:41)
[2020-11-24] MEDS: Pantoprazole 40 MG GRANULES PACKET PER TUBE SCH (09:41)
[2020-11-24] MEDS: Docusate Sodium 100 MG/10 ML UDCUP PER TUBE SCH (09:42)
[2020-11-24] MEDS: Metoprolol Tartrate 25 MG TAB PO SCH (09:42)
[2020-11-24 11:41] VITALS: TEMP 98.5
== END 2020-11-24 12:55 | disposition hospice, inpatient (51) | DRG 870 ==
LOC: ERS 10:04 → EDBD 10:04 → CCU 11:30
PROVIDERS: ADMIT Internal Medicine; ATTEND Internal Medicine
PROC: 5A1955Z Respiratory Ventilation, Greater than 96 Consecutive Hours (ICD-10-PCS; principal; 2020-11-07)
PROC: 8E0ZXY6 Isolation (ICD-10-PCS; 2020-11-07)
PROC: 0D9670Z Drainage of Stomach with Drainage Device, Via Natural or Artificial Opening (ICD-10-PCS; 2020-11-07)
PROC: 02HV33Z Insertion of Infusion Device into Superior Vena Cava, Percutaneous Approach (ICD-10-PCS; 2020-11-08)
PROC: B548ZZA Ultrasonography of Superior Vena Cava, Guidance (ICD-10-PCS; 2020-11-08)
PROC: 06JY3ZZ Inspection of Lower Vein, Percutaneous Approach (ICD-10-PCS; 2020-11-08)
PROC: 3E0G76Z Introduction of Nutritional Substance into Upper GI, Via Natural or Artificial Opening (ICD-10-PCS; 2020-11-08)
PROC: 3E0333Z Introduction of Anti-inflammatory into Peripheral Vein, Percutaneous Approach (ICD-10-PCS; 2020-11-21)
DX: A41.89 Other specified sepsis (principal); U07.1 COVID-19; J12.82 Pneumonia due to coronavirus disease 2019; J80 Acute respiratory distress syndrome; I21.A1 Myocardial infarction type 2; J44.1 Chronic obstructive pulmonary disease with (acute) exacerbation; E87.2 Acidosis; N17.9 Acute kidney failure, unspecified; E87.0 Hyperosmolality and hypernatremia; I47.2 Ventricular tachycardia; Z66 Do not resuscitate; Z51.5 Encounter for palliative care; M19.90 Unspecified osteoarthritis, unspecified site; N18.30 Chronic kidney disease, stage 3 unspecified; I25.10 Atherosclerotic heart disease of native coronary artery without angina pectoris; R73.9 Hyperglycemia, unspecified; R74.01 Elevation of levels of liver transaminase levels; E87.8 Other disorders of electrolyte and fluid balance, not elsewhere classified; E87.5 Hyperkalemia; Z78.1 Physical restraint status; Z90.49 Acquired absence of other specified parts of digestive tract; Z95.1 Presence of aortocoronary bypass graft; Z86.73 Personal history of transient ischemic attack (TIA), and cerebral infarction without residual deficits; Z87.891 Personal history of nicotine dependence; Z83.6 Family history of other diseases of the respiratory system; Z79.899 Other long term (current) drug therapy; Z79.82 Long term (current) use of aspirin; Z79.02 Long term (current) use of antithrombotics/antiplatelets; I25.2 Old myocardial infarction; Z86.74 Personal history of sudden cardiac arrest; Z28.82 Immunization not carried out because of caregiver refusal
CPT/HCPCS: 36415; 36416; 36600; 51702; 71045; 71275; 74018; 80048; 80053; 80202; 81003; 81015; 82553; 82805; 83605; 83735; 83880; 84100; 84478; 84484; 85007; 85025; 85027; 85610; 85730; 86140; 87040; 87070; 87086; 87205; 93005; 93010; 93306; 94002; 94003; 94760; 95816; 95819; 95957; 96365; 96366; 96367; 96368; 96372; 96375; C9113; J0360; J0692; J0696; J1100; J1644; J1650; J1815; J1885; J2060; J2248; J2250; J2270; J2405; J2704; J2765; J2930; J3010; J3370; J3490; J7050